=== PATIENT | male | born 1950 | race Caucasian/White ===

== ENCOUNTER 2025-06-12 11:05 | Day surgery (SDC) | payer MEDICARE ==
[~2025-06-12] VITALS: Ht 172.7 cm; Wt 101.2 kg
[~2025-06-12 11:05] MED LIST: ACET500C10 PO; ALBU8.5H INH; ALFU10TA23 PO; LIDOCAINE 3.5% 1 ML OPHTH TOPICAL GEL OU ONE; LOSA25TA13 PO; MELO15TA28 PO
[2025-06-12] MEDS ORDERED: MIDAZOLAM INJ 2 MG/2 ML VIAL As Ordered ONE (13:27)
[2025-06-12] MEDS: LIDOCAINE 3.5% 1 ML OPHTH TOPICAL GEL As Ordered ONE (15:16)
[2025-06-12] MEDS: TOBRADEX OPHTH OINT 3.5 GM As Ordered ONE (15:22)
[2025-06-12 15:29] VITALS: BP 131/67; TEMP 96.6; O2SAT 96
== END 2025-06-12 15:59 | disposition home or self-care (01) ==
LOC: M SDC 11:05
PROVIDERS: ATTEND Ophthalmology
DX: H40.1112 Primary open-angle glaucoma, right eye, moderate stage (principal); I10 Essential (primary) hypertension; Z79.899 Other long term (current) drug therapy; Z98.41 Cataract extraction status, right eye; Z98.42 Cataract extraction status, left eye; Z87.891 Personal history of nicotine dependence
CPT/HCPCS: 66183; C1783; J2250; J3010; J7315

== ENCOUNTER 2025-07-24 06:36 | Day surgery (SDC) | payer MEDICARE ==
[~2025-07-24] VITALS: Ht 172.7 cm; Wt 101.2 kg
[~2025-07-24 06:36] MED LIST changes: -LIDOCAINE 3.5% 1 ML OPHTH TOPICAL GEL OU ONE
[2025-07-24] MEDS ORDERED: MIDAZOLAM INJ 2 MG/2 ML VIAL As Ordered ONE (07:25)
[2025-07-24] MEDS ORDERED: LIDOCAINE 3.5% 1 ML OPHTH TOPICAL GEL As Ordered ONE (08:23)
[2025-07-24] MEDS: LIDOCAINE 1% SDV 5 ML VIAL As Ordered ONE (08:35)
[2025-07-24] MEDS: LIDOCAINE 2% W/EPINEPHrine 20 ML VIAL **PRES FREE As Ordered ONE (08:35)
[2025-07-24] MEDS: TOBRADEX OPHTH OINT 3.5 GM As Ordered ONE (08:35)
[2025-07-24] MEDS ORDERED: LIDOCAINE 3.5% 1 ML OPHTH TOPICAL GEL OD ONE (08:45)
[2025-07-24 10:00] VITALS: BP 135/80; TEMP 97.8; O2SAT 98
[2025-07-24] MEDS: ACETAMINOPHEN 325 MG TAB PO ONE (10:01)
== END 2025-07-24 10:01 | disposition home or self-care (01) ==
LOC: M SDC 06:36
PROVIDERS: ATTEND Ophthalmology
DX: H40.1112 Primary open-angle glaucoma, right eye, moderate stage (principal); I10 Essential (primary) hypertension; E78.5 Hyperlipidemia, unspecified; Z79.899 Other long term (current) drug therapy
CPT/HCPCS: 66183; C1783; J2250; J3010; J7315